=== PATIENT | female | born 1940 | race Caucasian/White ===

== ENCOUNTER → 2016-07-13 | Outpatient (CLI) | payer OTHER | LOC: BMCIMAGING 08:36 | PROVIDERS: ATTEND Orthopaedic Surgery | DX: Z09 Encounter for follow-up examination after completed treatment for conditions other than malignant neoplasm (principal); Z96.611 Presence of right artificial shoulder joint ==

== ENCOUNTER → 2016-08-05 | Outpatient (CLI) | payer OTHER | LOC: BMCIMAGING 12:21 | DX: N93.8 Other specified abnormal uterine and vaginal bleeding (principal) | CPT/HCPCS: G0206 ==

== ENCOUNTER → 2016-08-29 | Outpatient (CLI) | payer OTHER | LOC: BMCIMAGING 08:24 | PROVIDERS: ATTEND Orthopaedic Surgery | DX: Z47.1 Aftercare following joint replacement surgery (principal); Z96.611 Presence of right artificial shoulder joint ==

== ENCOUNTER → 2016-10-20 | Outpatient (CLI) | payer OTHER | LOC: BMCIMAGING 15:17 | PROVIDERS: ATTEND Internal Medicine | DX: R05 Cough (principal); R06.00 Dyspnea, unspecified ==

== ENCOUNTER → 2016-12-22 | Outpatient (CLI) | payer OTHER | LOC: BMCIMAGING 08:35 | PROVIDERS: ATTEND Orthopaedic Surgery | DX: Z47.1 Aftercare following joint replacement surgery (principal); Z96.611 Presence of right artificial shoulder joint ==

== ENCOUNTER 2018-04-16 18:43 | Inpatient (IN) | payer OTHER ==
--- NOTE | 2018-04-16 19:32 | EDPHY ---
H & P Time Seen by Provider: 04/16/18 19:30 HPI/ROS: Chief complaint. Shortness of breath HPI. 77-year-old female presents emergency department with shortness of breath. She has had cough and shortness of breath for about 2 weeks. She has had exertional dyspnea for 2 days. 4 weeks ago she had a UTI and then had diarrhea. Her cough is productive. She had fever and chills last week. She also has sore throat. Denies chest pain, abdominal pain, vomiting diarrhea, any urinary symptoms. She has had decreased oral intake and because she is an insulin-dependent diabetic is decreasing her insulin according to her oral intake. She wears oxygen at night. ROS 10 systems were reviewed and negative with the exception of the elements mentioned in the history of present illness Past Medical/Surgical History: Past medical history arthritis, uterine cancer with hysterectomy, insulin- dependent diabetes, dyslipidemia, ankylosing spondylitis, anemia, coronary artery disease, hypertension Social History: Single, nonsmoker, no alcohol Smoking Status: Former smoker Physical Exam: General Appearance: Alert pleasant well-developed female mild distress vital signs are stable. Afebrile Eyes: Pupils equal and round no pallor or injection. ENT, Mouth: Mucous membranes are moist. Respiratory: No retractions. Rales left lower lung Cardiovascular: Regular rate and rhythm. Gastrointestinal: Abdomen is soft and nontender, no masses, bowel sounds normal. Neurological: Awake and alert, sensory and motor exams grossly normal. Skin: Warm and dry, no rashes. Musculoskeletal: Neck is supple nontender. Extremities symmetrical, full range of motion. Psychiatric: Patient is oriented X 3, there is no agitation. Constitutional: Initial Vital Signs Temperature (C) 36.5 C 04/16/18 18:44 Heart Rate 87 04/16/18 18:44 Respiratory Rate 18 04/16/18 18:44 Blood Pressure 158/88 H 04/16/18 18:44 O2 Sat (%) 96 04/16/18 18:44 O2 Delivery Mode Room Air O2 (L/minute) 2 Allergies/Adverse Reactions: oxycodone Allergy (Intermediate, Verified 07/24/14 09:08) Diarrhea Sulfa (Sulfonamide Antibiotics) Allergy (Verified 07/20/12 15:26) Home Medications: Medication Instructions Recorded Insulin Glargine [Lantus 100 16 - 20 unit SC HS 08/15/12 UNITS/ML] Cholecalciferol (Vitamin D3) 4,000 unit PO DAILY 04/30/14 [Vitamin D3] Insulin Lispro [humALOG LISPRO 100 6 - 8 unit SC TIDMEAL 04/30/14 units/ml (*)] Magnesium Oxide [Magnesium Oxide 400 mg PO DAILY 04/30/14 400 mg (*)] Ranitidine HCl [Zantac] 150 mg PO DAILY PRN 07/16/14 traMADol [Ultram 50 mg (*)] 50 mg PO Q6 PRN #20 tab 07/24/14 Medical Decision Making - Diagnostics Imaging Results: Chest x-ray from earlier today reviewed by me and shows left lower lobe pneumonia Procedures: IV normal saline. Sepsis workup. Rocephin IV after blood cultures ED Course/Re-evaluation: On serial evaluations patient remained stable. She is placed on oxygen to help her breathing somewhat. Patient and I discussed imaging and lab results. We discussed treatment plan including recommendation for admission. She expresses understanding and agreement I consulted and discussed the case with Dr. Langston, hospitalist, who agrees to the admission Differential Diagnosis: Patient has exertional dyspnea and pneumonia. She is insulin-dependent diabetic. No evidence for sepsis. - Data Points Laboratory Results: Laboratory Results 04/16/18 19:25 04/16/18 19:25 04/16/18 04/16/18 04/16/18 20:35 19:25 19:25 WBC RBC Hgb Hct MCV MCH MCHC RDW Plt Count MPV Neut % (Auto) Lymph % (Auto) [place] % (Auto) Eos % (Auto) Baso % (Auto) Nucleat RBC Rel Count Absolute Neuts (auto) Absolute Lymphs (auto) Absolute Monos (auto) Absolute Eos (auto) Absolute Basos (auto) Absolute Nucleated RBC Immature Gran % Immature Gran # PT 13.8 SEC SEC (12.0-15.0) INR 1.04 (0.83-1.16) APTT 31.1 SEC SEC (23.0-38.0) VBG Lactic Acid 0.9 mmol/L mmol/L (0.7-2.1) Sodium 138 mEq/L mEq/L (135-145) Potassium 4.0 mEq/L mEq/L (3.5-5.2) Chloride 106 mEq/L mEq/L (97-110) Carbon Dioxide 24 mEq/l mEq/l (22-31) Anion Gap 8 mEq/L mEq/L (6-14) BUN 20 mg/dL mg/dL (7-23) Creatinine 0.9 mg/dL mg/dL (0.6-1.0) Estimated GFR > 60 Glucose 133 mg/dL H mg/dL (70-100) Calcium 9.1 mg/dL mg/dL (8.5-10.4) Total Bilirubin 1.0 mg/dL mg/dL (0.1-1.4) 04/16/18 19:25 WBC 4.55 10^3/uL 10^3/uL (3.80-9.50) RBC 4.52 10^6/uL 10^6/uL (4.18-5.33) Hgb 12.2 g/dL L g/dL (12.6-16.3) Hct 38.8 % % (38.0-47.0) MCV 85.8 fL fL (81.5-99.8) MCH 27.0 pg L pg (27.9-34.1) MCHC 31.4 g/dL L g/dL (32.4-36.7) RDW 13.5 % % (11.5-15.2) Plt Count 343 10^3/uL 10^3/uL (150-400) MPV 9.3 fL fL (8.7-11.7) Neut % (Auto) 55.4 % % (39.3-74.2) Lymph % (Auto) 31.6 % % (15.0-45.0) [place] % (Auto) 9.2 % % (4.5-13.0) Eos % (Auto) 2.9 % % (0.6-7.6) Baso % (Auto) 0.9 % % (0.3-1.7) Nucleat RBC Rel Count 0.0 % % (0.0-0.2) Absolute Neuts (auto) 2.52 10^3/uL 10^3/uL (1.70-6.50) Absolute Lymphs (auto) 1.44 10^3/uL 10^3/uL (1.00-3.00) Absolute Monos (auto) 0.42 10^3/uL 10^3/uL (0.30-0.80) Absolute Eos (auto) 0.13 10^3/uL 10^3/uL (0.03-0.40) Absolute Basos (auto) 0.04 10^3/uL 10^3/uL (0.02-0.10) Absolute Nucleated RBC 0.00 10^3/uL 10^3/uL (0-0.01) Immature Gran % 0.0 % % (0.0-1.1) Immature Gran # 0.00 10^3/uL 10^3/uL (0.00-0.10) PT INR APTT VBG Lactic Acid Sodium Potassium Chloride Carbon Dioxide Anion Gap BUN Creatinine Estimated GFR Glucose Calcium Total Bilirubin Medications Given: Discontinued Medications Sodium Chloride (Ns) 1,000 mls @ 0 mls/hr IV EDNOW ONE; Wide Open PRN Reason: Protocol Stop: 04/16/18 20:13 Last Admin: 04/16/18 20:37 Dose: 1,000 mls Departure - Departure Disposition: [facility] Inpatient Acute Clinical Impression: Pneumonia Qualifiers: Pneumonia type: due to unspecified organism Laterality: left Lung location: lower lobe of lung Qualified Code(s): J18.1 - Lobar pneumonia, unspecified organism Condition: Fair Referrals: NONE *PRIMARY CARE P,. [Primary Care Provider] - As per Instructions
[2018-04-16] MEDS ORDERED: NS 1,000 ML IV ONE (20:12)
[2018-04-16 20:24] LABS: PLATELET COUNT 343 10^3/uL (150-400)
[2018-04-16 20:32] LABS: INR 1.04 (0.83-1.16); PROTIME(PATIENT) 13.8 SEC (12.0-15.0)
[2018-04-16] MEDS ORDERED: IPRATROPIUM/ALBUTEROL 3 ML DEYVIAL IH ONE (20:45)
[2018-04-16] MEDS ORDERED: ACETAMINOPHEN 325 MG TAB PO PRN (21:24)
[2018-04-16] MEDS ORDERED: ONDANSETRON 4 MG/2 ML VIAL IVP PRN (21:24)
[2018-04-16] MEDS ORDERED: ONDANSETRON DISINTEGRATING 4 MG TAB PO PRN (21:24)
--- NOTE | 2018-04-16 22:08 | PDGENHP ---
History and Physical - Chief Complaint SOB, Productive cough - History of Present Illness Isela Matos is a 77 yo F with a PMHx of IDDM who presents to [facility] for chief complaint of shortness of breath and cough. She reports that she recently had a UTI 4 weeks ago and was prescribed an antibiotic. She then experienced diarrhea for about one week. These symptoms have since improved however for the past week patient reports shortness of breath as well as productive cough. She reports sputum yellow to brown in coloration. She denies any wheezing, chest pain, n/v. She does report continued decreased PO intake. Due to this, she has not been taking her long acting insulin. History Information - Allergies/Home Medication List Allergies/Adverse Reactions: oxycodone Allergy (Intermediate, Verified 07/24/14 09:08) Diarrhea Sulfa (Sulfonamide Antibiotics) Allergy (Verified 07/20/12 15:26) Home Medications: Cholecalciferol (Vitamin D3) [Vitamin D3] 4,000 unit PO DAILY 04/30/14 [Last Taken 04/02/18] Insulin Lispro [humALOG LISPRO 100 units/ml (*)] 4 - 6 unit SC TIDMEAL 04/30/14 [Last Taken 04/14/18] Magnesium Oxide [Magnesium Oxide 400 mg (*)] 400 mg PO DAILY 04/30/14 [Last Taken 04/02/18] Ranitidine HCl [Zantac] 150 mg PO DAILY PRN 07/16/14 [Last Taken Unknown] Acetaminophen/Codeine 300/30Mg [Tylenol #3 (*)] 1 each PO DAILY 04/16/18 [Last Taken 04/02/18] Ibuprofen [Motrin (*)] 800 mg PO TID PRN 04/16/18 [Last Taken 04/16/18] Insulin Glargine,Hum.rec.anlog [Basaglar Kwikpen U-100] 10 unit SQ HS 04/16/18 [ Last Taken Unknown] I have personally reviewed and updated: family history, medical history, social history, surgical history - Past Medical History diabetes type 2 - Surgical History Reports: no pertinent surgical hx - Family History Positive for: non-pertinent - Social History Smoking Status: Former smoker Review of Systems Review of Systems: ROS: 10pt was reviewed & negative except for what was stated in HPI & below Physical Exam Physical Exam: Temp Pulse Resp BP Pulse Ox 36.8 C 82 18 136/59 H 96 04/16/18 21:49 04/16/18 21:49 04/16/18 21:49 04/16/18 21:49 04/16/18 21:49 O2 (L/minute) 2 Constitutional: no apparent distress Eyes: PERRL Ears, Nose, Mouth, Throat: moist mucous membranes Cardiovascular: regular rate and rhythym Respiratory: reduced air movement Gastrointestinal: soft, non-tender abdomen Skin: warm Musculoskeletal: full muscle strength Neurologic: AAOx3 Psychiatric: interacting appropriately Lab Data & Imaging Review 04/16/18 19:25 04/16/18 19:25 WBC 4.55 10^3/uL (3.80-9.50) 04/16/18 19:25 RBC 4.52 10^6/uL (4.18-5.33) 04/16/18 19:25 Hgb 12.2 g/dL (12.6-16.3) L 04/16/18 19:25 Hct 38.8 % (38.0-47.0) 04/16/18 19:25 MCV 85.8 fL (81.5-99.8) 04/16/18 19:25 MCH 27.0 pg (27.9-34.1) L 04/16/18 19:25 MCHC 31.4 g/dL (32.4-36.7) L 04/16/18 19:25 RDW 13.5 % (11.5-15.2) 04/16/18 19:25 Plt Count 343 10^3/uL (150-400) 04/16/18 19:25 MPV 9.3 fL (8.7-11.7) 04/16/18 19:25 Neut % (Auto) 55.4 % (39.3-74.2) 04/16/18 19:25 Lymph % (Auto) 31.6 % (15.0-45.0) 04/16/18 19:25 [place] % (Auto) 9.2 % (4.5-13.0) 04/16/18 19:25 Eos % (Auto) 2.9 % (0.6-7.6) 04/16/18 19:25 Baso % (Auto) 0.9 % (0.3-1.7) 04/16/18 19:25 Nucleat RBC Rel Count 0.0 % (0.0-0.2) 04/16/18 19:25 Absolute Neuts (auto) 2.52 10^3/uL (1.70-6.50) 04/16/18 19:25 Absolute Lymphs (auto) 1.44 10^3/uL (1.00-3.00) 04/16/18 19:25 Absolute Monos (auto) 0.42 10^3/uL (0.30-0.80) 04/16/18 19:25 Absolute Eos (auto) 0.13 10^3/uL (0.03-0.40) 04/16/18 19:25 Absolute Basos (auto) 0.04 10^3/uL (0.02-0.10) 04/16/18 19:25 Absolute Nucleated RBC 0.00 10^3/uL (0-0.01) 04/16/18 19:25 Immature Gran % 0.0 % (0.0-1.1) 04/16/18 19:25 Immature Gran # 0.00 10^3/uL (0.00-0.10) 04/16/18 19:25 PT 13.8 SEC (12.0-15.0) 04/16/18 19:25 INR 1.04 (0.83-1.16) 04/16/18 19:25 APTT 31.1 SEC (23.0-38.0) 04/16/18 19:25 VBG Lactic Acid 0.9 mmol/L (0.7-2.1) 04/16/18 20:35 Sodium 138 mEq/L (135-145) 04/16/18 19:25 Potassium 4.0 mEq/L (3.5-5.2) 04/16/18 19:25 Chloride 106 mEq/L (97-110) 04/16/18 19:25 Carbon Dioxide 24 mEq/l (22-31) 04/16/18 19:25 Anion Gap 8 mEq/L (6-14) 04/16/18 19:25 BUN 20 mg/dL (7-23) 04/16/18 19:25 Creatinine 0.9 mg/dL (0.6-1.0) 04/16/18 19:25 Estimated GFR > 60 04/16/18 19:25 Glucose 133 mg/dL (70-100) H 04/16/18 19:25 Calcium 9.1 mg/dL (8.5-10.4) 04/16/18 19:25 Total Bilirubin 1.0 mg/dL (0.1-1.4) 04/16/18 19:25 NT-Pro-B Natriuret Pep 238 pg/mL (0-450) 04/16/18 19:25 Assessment & Plan Assessment: Community Acquired Pneumonia (Acute) - Reports 1 week of SOB and productive cough - CXR at Urgent care today shows LLL infiltrate as well as RML infiltrate - Not currently meeting SIRS criteria, LA 0.9 on admission - Respiratory PCR pending - S/p Ceftriaxone in ED, will continue Ceftriaxone and Azithromycin IDDM - Decreased PO intake over past few weeks - Patient stopped taking long acting insulin recently - Will hold Insulin Glargine - Order SSI as inpatient Arthritis - Continue PRN Ibuprofen FEN: Diabetic Diet PPx: Lovenox Code: FULL Dispo: Admit to observation
[2018-04-16] MEDS: AZITHROMYCIN IV 500 MG in NS 250 ML IV SCH (22:18)
[2018-04-16] MEDS ORDERED: D50W 25 GM/50 ML SYR IVP PRN (22:19)
[2018-04-17] MEDS: INSULIN LISPRO 100 UNIT/ML SC SCH ×3 (09:16→17:31)
[2018-04-17] MEDS: ENOXAPARIN 40 MG/0.4 ML SYR SC SCH (10:30)
--- NOTE | 2018-04-17 11:42 | ASMTCMCOM ---
CM Note CM Note Notes: Pt is a 77 y/o female admitted for pneumonia. Therapies have been ordered and a waiting recommendations. Needs are TBD at this time. CM to follow. Plan: TBD Date Signed: 04/17/2018 11:42 AM Electronically Signed By:DIPAK Chambers
[2018-04-17] MEDS: IBUPROFEN 600 MG TAB PO PRN ×2 (12:35→20:27)
[2018-04-17] MEDS ORDERED: FAMOTIDINE 20 MG TAB PO PRN (12:39)
--- NOTE | 2018-04-17 12:45 | HOSPPROG ---
Hospitalist Progress Note Assessment/Plan: 77 yo F w cap, AHRF CAP: day ceftriaxone azithro influenza neg add duonebs, mucinex AHRF: 2/2 above intermittent 02 requirement IDDM: dm 2 physiology continue lantus, lispro proph: lmwh dispo: inpt Subjective: cxr w b/l airspace disease (interp by me) Objective: Vital Signs Temp Pulse Resp BP Pulse Ox 37.1 C 64 16 122/62 H 94 04/17/18 11:56 04/17/18 11:56 04/17/18 11:56 04/17/18 11:56 04/17/18 11:56 PT 13.8 SEC (12.0-15.0) 04/16/18 19:25 INR 1.04 (0.83-1.16) 04/16/18 19:25 - Physical Exam Constitutional: no apparent distress, appears nourished Eyes: PERRL, anicteric sclera Ears, Nose, Mouth, Throat: moist mucous membranes, hearing normal Cardiovascular: regular rate and rhythym, no murmur, rub, or gallop Respiratory: no respiratory distress, other (diffuse crackles b/l) Gastrointestinal: normoactive bowel sounds, soft, non-tender abdomen Genitourinary: no bladder fullness, No [place] in urethra Skin: warm, normal color ICD10 Worksheet Patient Problems: Problems Problem Status Onset Pneumonia Acute Gallstone pancreatitis Acute Rotator cuff tear arthropathy of right shoulder Chronic
[2018-04-17] MEDS: guaiFENesin 600 MG TAB.ER PO SCH ×2 (15:31→20:28)
[2018-04-17] MEDS: IPRATROPIUM/ALBUTEROL 3 ML DEYVIAL IH PRN ×2 (16:25→20:41)
--- NOTE | 2018-04-17 16:44 | PDMN ---
Medical Necessity Medical necessity: MCG M282 c PNA- status changed to INPT 04/17 for ongoing tx of PNA > 2 MN., IV abx, intermittent O2 add duonebs, mucinex, SOB, cough, PMH DM2,
[2018-04-17] MEDS ORDERED: INSULIN LISPRO 100 UNIT/ML SC SCH (18:00)
[2018-04-17] MEDS: INSULIN GLARGINE 100 UNITS/ML UNIT SC SCH (20:27)
[2018-04-17] MEDS ORDERED: diphenhydrAMINE 25 MG CAP PO PRN (21:08)
[2018-04-17] MEDS: AZITHROMYCIN IV 500 MG in NS 250 ML IV SCH (21:15)
[2018-04-18] MEDS: MAGNESIUM OXIDE 400 MG TAB PO SCH (09:22)
[2018-04-18] MEDS: guaiFENesin 600 MG TAB.ER PO SCH ×2 (09:22→20:47)
[2018-04-18] MEDS: INSULIN LISPRO 100 UNIT/ML SC SCH ×3 (09:23→19:17)
[2018-04-18] MEDS: ENOXAPARIN 40 MG/0.4 ML SYR SC SCH (09:23)
[2018-04-18] MEDS: ACETAMINOPHEN/CODEINE 300/30MG TAB PO SCH (09:24)
[2018-04-18] MEDS: IBUPROFEN 600 MG TAB PO PRN (09:29)
[2018-04-18] MEDS: CHOLECALCIFEROL VIT D3 1,000 UNITS TAB PO SCH (09:29)
[2018-04-18] MEDS: IPRATROPIUM/ALBUTEROL 3 ML DEYVIAL IH PRN (10:16)
[2018-04-18] MEDS ORDERED: IPRATROPIUM/ALBUTEROL 3 ML DEYVIAL IH SCH (14:10)
--- NOTE | 2018-04-18 14:19 | HOSPPROG ---
Hospitalist Progress Note Assessment/Plan: 77 yo F w cap, AHRF CAP: day ceftriaxone azithro influenza neg add duonebs, mucinex add IS AHRF: 2/2 above intermittent 02 requirement IDDM: dm 2 physiology continue lantus, lispro proph: lmwh dispo: inpt Subjective: remains hypoxic. afebrile Objective: Vital Signs Temp Pulse Resp BP Pulse Ox 37.0 C 82 18 103/50 L 96 04/18/18 11:53 04/18/18 11:53 04/18/18 11:53 04/18/18 11:53 04/18/18 11:53 PT 13.8 SEC (12.0-15.0) 04/16/18 19:25 INR 1.04 (0.83-1.16) 04/16/18 19:25 - Physical Exam Constitutional: no apparent distress, appears nourished Eyes: PERRL, anicteric sclera Ears, Nose, Mouth, Throat: moist mucous membranes, hearing normal Cardiovascular: regular rate and rhythym, no murmur, rub, or gallop Respiratory: other (bibasilar crackles L>R) Gastrointestinal: normoactive bowel sounds, soft, non-tender abdomen Genitourinary: no bladder fullness, No [place] in urethra Skin: warm, normal color Musculoskeletal: full muscle strength Neurologic: AAOx3 Psychiatric: interacting appropriately ICD10 Worksheet Patient Problems: Problems Problem Status Onset Pneumonia Acute Gallstone pancreatitis Acute Rotator cuff tear arthropathy of right shoulder Chronic
--- NOTE | 2018-04-18 15:31 | ASMTCMCOM ---
CM Note CM Note Notes: Pt cleared by PT/OT for home. Pt is active and works, anticipate she will dc home when medically stable. CM available for any changes. DC Plan: Independent Date Signed: 04/18/2018 03:30 PM Electronically Signed By:Darcy Carlson RN
[2018-04-18] MEDS: INSULIN GLARGINE 100 UNITS/ML UNIT SC SCH (20:47)
[2018-04-18] MEDS ORDERED: diphenhydrAMINE 25 MG CAP PO ONE (21:00)
[2018-04-18] MEDS: AZITHROMYCIN IV 500 MG in NS 250 ML IV SCH (21:46)
[2018-04-19] MEDS: IBUPROFEN 600 MG TAB PO PRN (08:55)
[2018-04-19] MEDS: guaiFENesin 600 MG TAB.ER PO SCH (08:55)
[2018-04-19] MEDS: CHOLECALCIFEROL VIT D3 1,000 UNITS TAB PO SCH (08:56)
[2018-04-19] MEDS: MAGNESIUM OXIDE 400 MG TAB PO SCH (08:56)
[2018-04-19] MEDS: ENOXAPARIN 40 MG/0.4 ML SYR SC SCH (08:57)
[2018-04-19] MEDS: ACETAMINOPHEN/CODEINE 300/30MG TAB PO SCH (09:39)
[2018-04-19] MEDS: INSULIN LISPRO 100 UNIT/ML SC SCH ×2 (09:40→11:50)
[2018-04-19] MEDS ORDERED: IPRATROPIUM/ALBUTEROL 3 ML DEYVIAL IH PRN (12:45)
--- NOTE | 2018-04-19 13:40 | HOSPPROG ---
Hospitalist Progress Note Assessment/Plan: 77 yo F w cap, AHRF CAP: day ceftriaxone azithro influenza neg add duonebs, mucinex add IS AHRF: 2/2 above intermittent 02 requirement 76% on RA w ambulation- will need home 02 she has required 02 on dc in past IDDM: dm 2 physiology continue lantus, lispro proph: lmwh dispo: inpt Subjective: amenable to dc. 76% on RA w ambulation Objective: Vital Signs Temp Pulse Resp BP Pulse Ox 36.9 C 69 20 141/68 H 94 04/19/18 08:30 04/19/18 12:51 04/19/18 12:51 04/19/18 08:30 04/19/18 12:51 PT 13.8 SEC (12.0-15.0) 04/16/18 19:25 INR 1.04 (0.83-1.16) 04/16/18 19:25 - Physical Exam Constitutional: no apparent distress, appears nourished Eyes: PERRL, anicteric sclera Ears, Nose, Mouth, Throat: moist mucous membranes, hearing normal Cardiovascular: regular rate and rhythym, no murmur, rub, or gallop Respiratory: other (crackles on R side. good air movement. no wheeze) Gastrointestinal: normoactive bowel sounds, soft, non-tender abdomen Genitourinary: no bladder fullness, No [place] in urethra Skin: warm, normal color Musculoskeletal: full muscle strength ICD10 Worksheet Patient Problems: Problems Problem Status Onset Pneumonia Acute Gallstone pancreatitis Acute Rotator cuff tear arthropathy of right shoulder Chronic
--- NOTE | 2018-04-19 13:49 | PDHOMEO2F ---
Home Oxygen Face to Face Home Orders: I certify that a physician or a nurse practitioner or physician's assistant press operator has had a [id number] encounter with this patient on the date of this order due to the diagnosis listed, which relates to the primary reason the patient requires home oxygen. Alternative treatments have been tried, or considered, and deemed ineffective. It is anticipated that supplemental oxygen will result in improvement with treatment. Home oxygen qualifying diagnosis: community acquired pneumonia SpO2 on room air (%): 76 Frequency of home oxygen needed: continuous Home oxygen liters per minute: 2 Home oxygen delivery device: nasal cannula Concentrator: Yes E-tanks for mobility and back up: Yes If ordering portable O2, is the patient mobile in the home?: Yes I certify that, based on these findings, the home oxygen is medically necessary for this patient for the following length of time. Length of time home oxygen needed: 1 month
[2018-04-19 16:19] VITALS: BP 126/61
--- NOTE | 2018-04-19 19:08 | GDS ---
DISCHARGE DIAGNOSES: 1. Community-acquired pneumonia. 2. Acute hypoxemic respiratory failure. 3. Diabetes. Please see admission history and physical by Dr. Ramon Langston. The patient presented with cough, shor tness of breath. She was concerned she had pneumonia. Chest x-ray demonstrated that. She received c overage with ceftriaxone and azithromycin as well as DuoNeb. The patient remained hypoxic 76% on milly m air with ambulation. She states she required oxygen following discharge from the hospital in the p ast. She is discharged with wi oxygen,Augmentin and azithromycin. Albuterol MDI and [id number] r guaifenesin. /[id number]/MODL
== END 2018-04-19 16:58 | disposition home or self-care (01) | DRG 193 ==
LOC: INTOOBSV 20:57 → F3E 21:41 → OBSVTOIN 04-17 12:42
PROVIDERS: ADMIT Internal Medicine; ATTEND Internal Medicine
DX: J18.8 Other pneumonia, unspecified organism (principal); J96.01 Acute respiratory failure with hypoxia; E86.9 Volume depletion, unspecified; E11.9 Type 2 diabetes mellitus without complications; I25.10 Atherosclerotic heart disease of native coronary artery without angina pectoris; I10 Essential (primary) hypertension; D64.9 Anemia, unspecified; Z85.42 Personal history of malignant neoplasm of other parts of uterus; Z90.710 Acquired absence of both cervix and uterus; Z87.891 Personal history of nicotine dependence; Z79.4 Long term (current) use of insulin
CPT/HCPCS: 96365; 97161-GP; 97165-GO; G0378; J0456; J0696; J1650; J1815

== ENCOUNTER → 2018-04-16 | Outpatient (CLI) | payer OTHER | LOC: BMCIMAGING 16:31 | PROVIDERS: ATTEND Emergency Medicine | DX: R06.09 Other forms of dyspnea (principal); I70.0 Atherosclerosis of aorta; M40.204 Unspecified kyphosis, thoracic region ==

== ENCOUNTER → 2018-05-03 | Outpatient (CLI) | payer OTHER | LOC: BMCIMAGING 11:13 | PROVIDERS: ATTEND Internal Medicine | DX: J98.4 Other disorders of lung (principal) ==

== ENCOUNTER → 2018-05-21 | Outpatient (CLI) | payer OTHER | LOC: BMCIMAGING 14:31 | PROVIDERS: ATTEND Internal Medicine | DX: Z12.31 Encounter for screening mammogram for malignant neoplasm of breast (principal); J18.9 Pneumonia, unspecified organism; I70.0 Atherosclerosis of aorta; M48.14 Ankylosing hyperostosis [Forestier], thoracic region; Z78.0 Asymptomatic menopausal state; Z96.611 Presence of right artificial shoulder joint ==

== ENCOUNTER → 2018-05-25 | Outpatient (CLI) | payer OTHER | LOC: BMCIMAGING 14:23 | PROVIDERS: ATTEND Internal Medicine | DX: M85.89 Other specified disorders of bone density and structure, multiple sites (principal); Z87.81 Personal history of (healed) traumatic fracture; Z78.0 Asymptomatic menopausal state ==

== ENCOUNTER → 2018-06-09 | Outpatient (CLI) | payer OTHER | LOC: FIMAGING 12:29 | PROVIDERS: ATTEND Internal Medicine | DX: M45.9 Ankylosing spondylitis of unspecified sites in spine (principal); J45.909 Unspecified asthma, uncomplicated; I25.10 Atherosclerotic heart disease of native coronary artery without angina pectoris; R59.0 Localized enlarged lymph nodes ==